=== PATIENT | female | born 1960 | race Caucasian/White ===

== ENCOUNTER → 2020-05-28 | Outpatient (CLI) | payer OTHER | LOC: HEART 5 15:05 | DX: J43.9 Emphysema, unspecified (principal); R94.2 Abnormal results of pulmonary function studies | CPT/HCPCS: 94010; 94729 ==

== ENCOUNTER 2021-12-26 16:40 | Emergency (ER) | payer OTHER ==
[2021-12-26] MEDS ORDERED: PREDNISONE 10 M10 MG PO (20:55)
[2021-12-26] MEDS ORDERED: CYCLOBENZAPRINE10 MG PO (20:55)
== END 2021-12-26 21:20 | disposition home or self-care (01) ==
LOC: ER1 16:40
DX: M54.42 Lumbago with sciatica, left side (principal); I10 Essential (primary) hypertension; E78.5 Hyperlipidemia, unspecified; Z90.49 Acquired absence of other specified parts of digestive tract; Z88.8 Allergy status to other drugs, medicaments and biological substances
CPT/HCPCS: 72131; 72192; 73610; 96372; 99283; J1100